=== PATIENT | male | born 1950 | race Caucasian/White ===

== ENCOUNTER 2016-07-19 09:37 | Emergency (ER) | payer OTHER, MEDICAID ==
[~2016-07-19] VITALS: Ht 182.9 cm; Wt 81.6 kg
[2016-07-19 10:16] LABS: Basophils # (auto) 0 uL; Basophils % (auto) 0.4 % (0.0-2.0); Eosinophils # (auto) 0.2 uL; Eosinophils % (auto) 2.4 % (0.0-7.0); Hematocrit 50.3 % (41.0-53.0); Hemoglobin 16.1 g/dL (13.5-17.5); Lymphocytes # (auto) 4.2 uL; Lymphocytes % (auto) 41.7 % (10.0-50.0); Mean Corpuscular Hemoglobin 29.8 pg (28.0-32.0); Mean Corpuscular Hgb Conc. 32.1 g/dL (32.0-36.0); Mean Corpuscular Volume 92.9 fL (80.0-100.0); Monocytes # (auto) 0.7 uL; Monocytes % (auto) 7.4 % (0.0-12.0); Neutrophils # (auto) 4.9 uL; Neutrophils % (auto) 48.1 % (37.0-80.0); Platelet Count (auto) 295 10^3/uL (140-450); Red Cell Distribution Width 13.5 % (11.6-16.0); White Blood Cell 10.2 10^3/uL (4.4-10.8)
[2016-07-19 10:35] LABS: Albumin 3.6 g/dL (3.4-5.0); BUN/Creatinine Ratio 29.5; Calcium 8.8 mg/dL (8.5-10.1); Magnesium 2.2 mg/dL (1.6-2.6)
[2016-07-19 10:38] LABS: Bilirubin, Total 0.9 mg/dL (0.2-1.0); Total Protein 7.4 g/dL (6.4-8.2)
[2016-07-19] MEDS ORDERED: PANTOPRAZOLE SODIUM 40 MG/10 ML VIAL IV ONE (11:30)
[2016-07-19 12:15] VITALS: BP 132/86
== END 2016-07-19 12:47 | disposition home or self-care (01) ==
LOC: ER 09:47
DX: K64.9 Unspecified hemorrhoids (principal); F17.210 Nicotine dependence, cigarettes, uncomplicated; J44.9 Chronic obstructive pulmonary disease, unspecified; F12.10 Cannabis abuse, uncomplicated; Z88.5 Allergy status to narcotic agent
CPT/HCPCS: 36415; 74176; 80053; 83735; 84484; 85025; 93005; 94761; 96374; 99285; C9113

== ENCOUNTER 2017-06-26 11:55 | Observation (INO) | payer OTHER, MEDICAID ==
[~2017-06-26] VITALS: Ht 193 cm; Wt 83.9 kg
[2017-06-26 15:41] VITALS: BP 149/87
[2017-06-26] MEDS ORDERED: cefTRIAXone SOD 1,000 MG VL ONE (16:10)
[2017-06-26] MEDS ORDERED: cefTRIAXone W LIDOCAINE 1 GM IM IM ONE (16:30)
== END 2017-06-26 16:37 | disposition home or self-care (01) | DRG 202 ==
LOC: ER 11:55 → OVERFLOW 13:21 → ER 16:37
PROVIDERS: ADMIT Family Medicine; ATTEND Family Medicine
DX: J20.8 Acute bronchitis due to other specified organisms (principal); J44.1 Chronic obstructive pulmonary disease with (acute) exacerbation; I10 Essential (primary) hypertension; Z87.891 Personal history of nicotine dependence; Z82.49 Family history of ischemic heart disease and other diseases of the circulatory system
CPT/HCPCS: 71046; 93005; 96372; 99285; G0378; J0696

== ENCOUNTER 2022-05-11 14:21 | Inpatient (IN) | payer OTHER, MEDICAID ==
[~2022-05-11] VITALS: Ht 185.4 cm; Wt 92.5 kg
[2022-05-11] MEDS ORDERED: MORPHINE SULFATE 4 MG/ML SYR/VIAL IV ONE (18:45)
[2022-05-11] MEDS ORDERED: SODIUM CHLORIDE 0.9% 1,000 ML IV ONE (19:00)
[2022-05-11 19:35] LABS: Hemoglobin 11.2 g/dL (13.5-17.5); Mean Corpuscular Hemoglobin 30.7 pg (28.0-32.0); Mean Corpuscular Hgb Conc. 34.8 g/dL (32.0-36.0); Mean Corpuscular Volume 88.1 fL (80.0-100.0); Red Blood Cells 3.64 10^6/uL (4.5-5.90); Red Cell Distribution Width 14.2 % (11.8-14.3); White Blood Cell 7.2 10^3/uL (4.4-10.8)
[2022-05-11 19:38] LABS: Basophils % (manual) 0 (0.0-2.0); Blast Cells 0; Myelocytes % 0; Promyelocytes % 0; Reactive Lymphocytes 0
[2022-05-11 19:48] LABS: Albumin 3.6 g/dL (3.4-5.0); Calcium 9.1 mg/dL (8.5-10.1); Potassium 3.8 mmol/L (3.5-5.1)
[2022-05-11 19:56] LABS: Band Neutrophils % (manual) 13; Eosinophils % (manual) 3 (0-7); Lymphocytes % (manual) 49 (10.0-50.0); Metamyelocytes % 3; Monocytes % (manual) 5 (0-12)
[2022-05-11] MEDS ORDERED: KETOROLAC TROMETH 30 MG/ML 1ML VIAL IV PRN (20:00)
[2022-05-11] MEDS ORDERED: SODIUM CHLORIDE 0.9% 1,000 ML IV SCH (20:00)
[2022-05-11] MEDS ORDERED: MORPHINE SULFATE INJ 2 MG/ml SYRG IV PRN (20:00)
[2022-05-11] MEDS ORDERED: KETOROLAC TROMETH 30 MG/ML 1ML VIAL IV ONE (20:00)
[2022-05-11] MEDS ORDERED: HYDROcodone-ACET 5/325MG TAB PO PRN (20:00)
[2022-05-11] MEDS ORDERED: ACETAMINOPHEN 325 MG TAB PO PRN (20:00)
[2022-05-11 20:03] LABS: BUN/Creatinine Ratio 15.1; Bilirubin, Total 1.9 mg/dL (0.2-1.0); Total Protein 7.3 g/dL (6.4-8.2)
[2022-05-11 20:26] LABS: % Iron Saturation 21.2 % (20-55)
[2022-05-11] MEDS ORDERED: ALBUTEROL SULF 2.5 MG/0.5ML(0.5%) NEB SOLN NEB PRN (20:30)
[2022-05-11] MEDS ORDERED: methylPREDNISolone SOD SUCC 125 MG/2 ML VL IV ONE (20:30)
[2022-05-11] MEDS ORDERED: hydrALAZINE HCL 20 MG/ML VL IV PRN (20:30)
[2022-05-11 20:35] VITALS: BP 180/98
[2022-05-11 20:52] LABS: INR 1.18 (0.9-1.15)
[2022-05-11] MEDS ORDERED: ASCORBIC ACID 500 MG TAB PO SCH (22:00)
[2022-05-12 03:43] LABS: Basophils # (auto) 0 10 ^3/uL (0-0.2); Basophils % (auto) 0.7 % (0.0-2.0); Eosinophils # (auto) 0.1 10 ^3/uL (0-0.8); Eosinophils % (auto) 2.3 % (0.0-7.0); Hematocrit 27.6 % (41.0-53.0); Hemoglobin 9.6 g/dL (13.5-17.5); Lymphocytes # (auto) 2.9 10 ^3/uL (0.4-5.4); Lymphocytes % (auto) 43.9 % (10.0-50.0); Mean Corpuscular Hemoglobin 30.7 pg (28.0-32.0); Mean Corpuscular Hgb Conc. 34.8 g/dL (32.0-36.0); Mean Corpuscular Volume 88.2 fL (80.0-100.0); Monocytes # (auto) 0.3 10 ^3/uL (0-1.3); Monocytes % (auto) 4.5 % (0.0-12.0); Neutrophils # (auto) 3.2 10 ^3/uL (1.6-8.6); Neutrophils % (auto) 48.6 % (37.0-80.0); Nucleated Red Blood Cells % 0.2 %; Red Blood Cells 3.12 10^6/uL (4.5-5.90); Red Cell Distribution Width 14.3 % (11.8-14.3); White Blood Cell 6.5 10^3/uL (4.4-10.8)
[2022-05-12] MEDS: IPRATROPIUM BROM 0.5 MG/2.5ML INH SOL NEB SCH ×2 (07:08→19:05)
[2022-05-12] MEDS: ALBUTEROL SULF 2.5 MG/0.5ML(0.5%) NEB SOLN NEB SCH ×2 (07:08→19:05)
[2022-05-12] MEDS: MULTIPLE VITAMIN TAB PO SCH (10:00)
[2022-05-12] MEDS ORDERED: methylPREDNISolone SOD SUCC 125 MG/2 ML VL IV SCH ×2 (10:00→22:00)
[2022-05-12] MEDS ORDERED: ZINC SULFATE 220mg CAP or TAB PO SCH (10:00)
[2022-05-12] MEDS: ENOXAPARIN SOD 40 MG/0.4 ML SYRINGE SC SCH (10:00)
[2022-05-12] MEDS ORDERED: HYDROcodone-ACET 5/325MG TAB PO PRN (20:30)
[2022-05-12] MEDS ORDERED: MORPHINE SULFATE INJ 2 MG/ml SYRG IV PRN (20:30)
[2022-05-12 21:56] LABS: Urine Bacteria FEW /hpf (None Seen); Urine Blood 1+ /uL (Negative); Urine Specific Gravity 1.015 (1.001-1.035); Urine WBC <1 /hpf (0 - 3)
[2022-05-12 22:00] VITALS: BP 138/75
[2022-05-12 22:24] VITALS: BP 138/75
[2022-05-12] MEDS ORDERED: HYDR-4902 PO (22:58)
[2022-05-13 05:00] VITALS: BP 134/69
[2022-05-13 05:16] LABS: Basophils # (auto) 0 10 ^3/uL (0-0.2); Basophils % (auto) 0.8 % (0.0-2.0); Eosinophils # (auto) 0.1 10 ^3/uL (0-0.8); Eosinophils % (auto) 2.2 % (0.0-7.0); Hematocrit 26.6 % (41.0-53.0); Hemoglobin 9.2 g/dL (13.5-17.5); Lymphocytes # (auto) 2.9 10 ^3/uL (0.4-5.4); Lymphocytes % (auto) 48.9 % (10.0-50.0); Mean Corpuscular Hemoglobin 30.7 pg (28.0-32.0); Mean Corpuscular Hgb Conc. 34.6 g/dL (32.0-36.0); Mean Corpuscular Volume 88.8 fL (80.0-100.0); Monocytes # (auto) 0.4 10 ^3/uL (0-1.3); Monocytes % (auto) 6.2 % (0.0-12.0); Neutrophils # (auto) 2.5 10 ^3/uL (1.6-8.6); Neutrophils % (auto) 41.9 % (37.0-80.0); Nucleated Red Blood Cells % 0.2 %; Red Blood Cells 2.99 10^6/uL (4.5-5.90); Red Cell Distribution Width 14.6 % (11.8-14.3); White Blood Cell 5.9 10^3/uL (4.4-10.8)
[2022-05-13 05:36] LABS: BUN/Creatinine Ratio 14.3; Calcium 8.8 mg/dL (8.5-10.1); Potassium 3.7 mmol/L (3.5-5.1)
[2022-05-13 08:58] VITALS: BP 135/78
[2022-05-13] MEDS: MULTIPLE VITAMIN TAB PO SCH (09:34)
[2022-05-13] MEDS: ENOXAPARIN SOD 40 MG/0.4 ML SYRINGE SC SCH (09:34)
[2022-05-13] MEDS ORDERED: HYDROcodone-ACET 10/325MG TAB PO PRN ×2 (09:45→12:30)
[2022-05-13] MEDS: methylPREDNISolone SOD SUCC 40 MG/ML VL IV SCH ×2 (10:46→21:51)
[2022-05-13 12:51] VITALS: BP 133/65
[2022-05-13] MEDS: ALBUTEROL SULF 2.5 MG/0.5ML(0.5%) NEB SOLN NEB SCH ×4 (14:38→18:05)
[2022-05-13] MEDS: IPRATROPIUM BROM 0.5 MG/2.5ML INH SOL NEB SCH ×4 (14:38→18:05)
[2022-05-13] MEDS: HYDROcodone-ACET 10/325MG TAB PO PRN ×2 (15:27→20:29)
[2022-05-13] MEDS ORDERED: IOHEXOL 300 MG/ML 100ML BOTTLE IJ ONE (17:25)
[2022-05-13 22:00] VITALS: BP 126/79
[2022-05-14] MEDS: ALBUTEROL SULF 2.5 MG/0.5ML(0.5%) NEB SOLN NEB SCH ×4 (00:01→18:23)
[2022-05-14] MEDS: IPRATROPIUM BROM 0.5 MG/2.5ML INH SOL NEB SCH ×4 (00:01→18:23)
[2022-05-14] MEDS: HYDROcodone-ACET 10/325MG TAB PO PRN (02:55)
[2022-05-14 05:00] VITALS: BP 123/71
[2022-05-14] MEDS ORDERED: IOHEXOL 300 MG/ML 100ML BOTTLE IJ ONE (08:20)
[2022-05-14 09:00] VITALS: BP 98/53
[2022-05-14] MEDS ORDERED: ONDANSETRON HCL 4 MG/2 ML VIAL IV PRN (09:45)
[2022-05-14] MEDS ORDERED: HYDROmorphone HCL 2 MG/ML VL/or syr IV ONE (09:45)
[2022-05-14] MEDS ORDERED: OXYCODONE W/ ACETAMINOPHEN 5/325MG TABLET PO PRN (09:45)
[2022-05-14] MEDS: methylPREDNISolone SOD SUCC 40 MG/ML VL IV SCH ×2 (09:56→21:35)
[2022-05-14] MEDS: ENOXAPARIN SOD 40 MG/0.4 ML SYRINGE SC SCH (09:56)
[2022-05-14] MEDS: MULTIPLE VITAMIN TAB PO SCH (09:56)
[2022-05-14] MEDS: MORPHINE SULF 15mg ER tab PO SCH ×2 (10:42→21:35)
[2022-05-14 13:00] VITALS: BP 117/71
[2022-05-14] MEDS: CIPROFLOXACIN HCL 500 MG TAB PO SCH ×2 (16:57→21:36)
[2022-05-14 17:00] VITALS: BP_SYST 107; BP_SYST 120; BP_DIAS 59; BP_DIAS 68
[2022-05-14 22:00] VITALS: BP 106/59
[2022-05-15] MEDS: IPRATROPIUM BROM 0.5 MG/2.5ML INH SOL NEB SCH ×4 (00:16→18:43)
[2022-05-15] MEDS: ALBUTEROL SULF 2.5 MG/0.5ML(0.5%) NEB SOLN NEB SCH ×4 (00:16→18:43)
[2022-05-15 05:00] VITALS: BP 120/60
[2022-05-15 08:34] VITALS: BP 96/46
[2022-05-15] MEDS: methylPREDNISolone SOD SUCC 40 MG/ML VL IV SCH ×2 (09:38→21:15)
[2022-05-15] MEDS: CIPROFLOXACIN HCL 500 MG TAB PO SCH ×2 (09:38→21:16)
[2022-05-15] MEDS: MULTIPLE VITAMIN TAB PO SCH (09:38)
[2022-05-15] MEDS: ENOXAPARIN SOD 40 MG/0.4 ML SYRINGE SC SCH (09:39)
[2022-05-15] MEDS: MORPHINE SULF 15mg ER tab PO SCH ×3 (09:39→21:16)
[2022-05-15] MEDS: SODIUM CHLORIDE 0.9% 1,000 ML IV SCH ×2 (12:46→21:12)
[2022-05-15 13:00] VITALS: BP 125/72
[2022-05-15 17:00] VITALS: BP 127/62
[2022-05-15] MEDS: DOCUSATE SOD 100 MG CAP PO SCH (21:15)
[2022-05-15 22:00] VITALS: BP 113/61
[2022-05-16 05:00] VITALS: BP 117/64
[2022-05-16] MEDS: MORPHINE SULF 15mg ER tab PO SCH ×3 (05:26→22:09)
[2022-05-16 07:23] LABS: Potassium 4.8 mmol/L (3.5-5.1)
[2022-05-16] MEDS: IPRATROPIUM BROM 0.5 MG/2.5ML INH SOL NEB SCH ×4 (07:23→19:12)
[2022-05-16] MEDS: ALBUTEROL SULF 2.5 MG/0.5ML(0.5%) NEB SOLN NEB SCH ×4 (07:23→19:12)
[2022-05-16 08:00] VITALS: BP 125/64
[2022-05-16 08:14] LABS: BUN/Creatinine Ratio 28.7; Bilirubin, Total 1.1 mg/dL (0.2-1.0); Calcium 8.2 mg/dL (8.5-10.1); Total Protein 6.3 g/dL (6.4-8.2)
[2022-05-16] MEDS: ENOXAPARIN SOD 40 MG/0.4 ML SYRINGE SC SCH (10:00)
[2022-05-16] MEDS: CIPROFLOXACIN HCL 500 MG TAB PO SCH ×2 (10:13→22:09)
[2022-05-16] MEDS: methylPREDNISolone SOD SUCC 40 MG/ML VL IV SCH ×2 (10:13→22:08)
[2022-05-16] MEDS: DOCUSATE SOD 100 MG CAP PO SCH ×2 (10:14→22:09)
[2022-05-16] MEDS: MULTIPLE VITAMIN TAB PO SCH (10:14)
[2022-05-16 12:00] VITALS: BP 108/63
[2022-05-16] MEDS ORDERED: POLYETHYLENE GLYCOL 17 GM PWDR PO ONE (12:45)
[2022-05-16] MEDS ORDERED: MAGNESIUM CITRATE SOLUTION 300 ML BTL PO ONE (15:00)
[2022-05-16 16:00] VITALS: BP 118/64
[2022-05-16] MEDS ORDERED: LACTULOSE 20Gm/30ML SOLN PO PRN (16:15)
[2022-05-16] MEDS ORDERED: ALBUTEROL MEDNEB 2.5 mg/3ml NEB ONE ×2 (18:09→23:56)
[2022-05-16 20:00] VITALS: BP 115/64
[2022-05-16] MEDS: SODIUM CHLORIDE 0.9% 1,000 ML IV SCH (20:50)
[2022-05-16 22:00] VITALS: BP 115/64
[2022-05-17] MEDS: IPRATROPIUM BROM 0.5 MG/2.5ML INH SOL NEB SCH ×4 (00:12→19:03)
[2022-05-17] MEDS: ALBUTEROL SULF 2.5 MG/0.5ML(0.5%) NEB SOLN NEB SCH ×4 (00:13→19:02)
[2022-05-17 05:00] VITALS: BP 120/65
[2022-05-17 05:31] LABS: Hemoglobin 8.9 g/dL (13.5-17.5); Mean Corpuscular Hemoglobin 30.7 pg (28.0-32.0); Mean Corpuscular Hgb Conc. 34.2 g/dL (32.0-36.0); Mean Corpuscular Volume 89.5 fL (80.0-100.0); Red Blood Cells 2.91 10^6/uL (4.5-5.90); Red Cell Distribution Width 14.8 % (11.8-14.3); White Blood Cell 8.8 10^3/uL (4.4-10.8)
[2022-05-17 05:42] LABS: INR 1.12 (0.9-1.15); Partial Thromboplastin Time 23.4 sec (24.6-33.4)
[2022-05-17 05:45] LABS: Potassium 4.8 mmol/L (3.5-5.1)
[2022-05-17 05:49] LABS: Basophils % (manual) 0 (0.0-2.0); Blast Cells 0; Eosinophils % (manual) 0 (0-7); Promyelocytes % 0; Reactive Lymphocytes 0
[2022-05-17 05:50] LABS: BUN/Creatinine Ratio 31.3; Calcium 7.9 mg/dL (8.5-10.1)
[2022-05-17] MEDS: MORPHINE SULF 15mg ER tab PO SCH ×3 (05:55→21:43)
[2022-05-17] MEDS ORDERED: ALBUTEROL MEDNEB 2.5 mg/3ml NEB ONE ×3 (06:04→18:01)
[2022-05-17 07:20] LABS: Band Neutrophils % (manual) 11; Lymphocytes % (manual) 47 (10.0-50.0); Metamyelocytes % 2; Monocytes % (manual) 2 (0-12); Myelocytes % 1
[2022-05-17 08:00] VITALS: BP 107/59
[2022-05-17] MEDS ORDERED: FLEET ENEMA(ADULT) 135 ML PR ONE (08:00)
[2022-05-17] MEDS: methylPREDNISolone SOD SUCC 40 MG/ML VL IV SCH (09:40)
[2022-05-17] MEDS: MULTIPLE VITAMIN TAB PO SCH (09:41)
[2022-05-17] MEDS: DOCUSATE SOD 100 MG CAP PO SCH ×2 (09:41→21:43)
[2022-05-17] MEDS: CIPROFLOXACIN HCL 500 MG TAB PO SCH ×2 (09:41→21:43)
[2022-05-17] MEDS: ENOXAPARIN SOD 40 MG/0.4 ML SYRINGE SC SCH (10:00)
[2022-05-17] MEDS ORDERED: POLYETHYLENE GLYCOL 17 GM PWDR PO PRN (10:00)
[2022-05-17] MEDS ORDERED: LACTULOSE 20Gm/30ML SOLN PO PRN (11:30)
[2022-05-17] MEDS: SODIUM CHLORIDE 0.9% 1,000 ML IV SCH ×2 (11:30→18:48)
[2022-05-17] MEDS ORDERED: MIDAZOLAM HCL 2MG/2ML 2ml VIAL (1mg/ml) ONE (11:58)
[2022-05-17] MEDS ORDERED: fentaNYL CITRATE 100 MCG/2 ML VL ONE (11:58)
[2022-05-17] MEDS ORDERED: SODIUM CHLORIDE LOCK 10 ML ONE (11:59)
[2022-05-17] MEDS ORDERED: ONDANSETRON HCL 4 MG/2 ML VIAL ONE (11:59)
[2022-05-17] MEDS ORDERED: DexAMETHasone SOD PHOS 10MG/1ML VIAL INJ ONE (11:59)
[2022-05-17] MEDS ORDERED: PROPOFOL 10 MG/ML 20 ML IV ONE (11:59)
[2022-05-17] MEDS ORDERED: CIPROFLOXACIN 400MG/200ML 200 ML IV ONE (12:17)
[2022-05-17] MEDS ORDERED: MORPHINE SULFATE 4 MG/ML SYR/VIAL IV PRN (12:30)
[2022-05-17] MEDS ORDERED: METOCLOPRAMIDE HCL 5MG/ml INJ 2ml VIAL IV PRN (12:30)
[2022-05-17] MEDS ORDERED: HYDROmorphone HCL 2 MG/ML VL/or syr IV PRN ×2 (12:30)
[2022-05-17] MEDS: METOCLOPRAMIDE HCL 5MG/ml INJ 2ml VIAL IV SCH ×2 (14:31→21:42)
[2022-05-17 16:00] VITALS: BP 123/62
[2022-05-17 20:00] VITALS: BP 133/73
[2022-05-17 22:00] VITALS: BP 133/73
[2022-05-18] MEDS ORDERED: ALBUTEROL MEDNEB 2.5 mg/3ml NEB ONE ×2 (00:09→05:39)
[2022-05-18] MEDS: ALBUTEROL SULF 2.5 MG/0.5ML(0.5%) NEB SOLN NEB SCH ×3 (00:17→12:16)
[2022-05-18] MEDS: IPRATROPIUM BROM 0.5 MG/2.5ML INH SOL NEB SCH ×3 (00:17→12:16)
[2022-05-18 05:00] VITALS: BP 120/69
[2022-05-18] MEDS: METOCLOPRAMIDE HCL 5MG/ml INJ 2ml VIAL IV SCH (06:01)
[2022-05-18] MEDS: MORPHINE SULF 15mg ER tab PO SCH ×2 (06:01→15:08)
[2022-05-18 09:00] VITALS: BP 115/66
[2022-05-18] MEDS: ENOXAPARIN SOD 40 MG/0.4 ML SYRINGE SC SCH (09:48)
[2022-05-18] MEDS: DOCUSATE SOD 100 MG CAP PO SCH (09:49)
[2022-05-18] MEDS: CIPROFLOXACIN HCL 500 MG TAB PO SCH (09:49)
[2022-05-18] MEDS: MULTIPLE VITAMIN TAB PO SCH (09:49)
[2022-05-18] MEDS ORDERED: methylPREDNISolone SOD SUCC 40 MG/ML VL IV SCH (10:00)
[2022-05-18] MEDS ORDERED: BISACODYL 10 MG RECT SUPP PR ONE (10:30)
[2022-05-18] MEDS ORDERED: FLEET ENEMA(ADULT) 135 ML PR ONE (10:30)
[2022-05-18] MEDS ORDERED: MORP1TAB12 PO (10:51)
[2022-05-18] MEDS ORDERED: BICA50TA41 PO (10:51)
[2022-05-18] MEDS ORDERED: DOCU-94 PO (10:51)
[2022-05-18] MEDS ORDERED: TAM04C PO (10:51)
[2022-05-18] MEDS ORDERED: BUDE1AER4 IN (10:51)
[2022-05-18 11:01] LABS: Hematocrit 25.1 % (41.0-53.0); Hemoglobin 8.7 g/dL (13.5-17.5); Mean Corpuscular Hemoglobin 30.9 pg (28.0-32.0); Mean Corpuscular Hgb Conc. 34.5 g/dL (32.0-36.0); Mean Corpuscular Volume 89.4 fL (80.0-100.0); Red Blood Cells 2.81 10^6/uL (4.5-5.90); Red Cell Distribution Width 14.7 % (11.8-14.3); White Blood Cell 8.3 10^3/uL (4.4-10.8)
[2022-05-18 11:09] LABS: Basophils % (manual) 0 (0.0-2.0); Blast Cells 0; Eosinophils % (manual) 0 (0-7); Promyelocytes % 0; Reactive Lymphocytes 0
[2022-05-18 11:15] LABS: BUN/Creatinine Ratio 24.6; Calcium 7.7 mg/dL (8.5-10.1); Potassium 3.9 mmol/L (3.5-5.1)
[2022-05-18 13:00] VITALS: BP 114/63
[2022-05-18] MEDS ORDERED: GADOTERATE MEG 10 MMOL/20ml INJ (0.5MMOL/ml) IV ONE (13:40)
[2022-05-18 14:54] LABS: Band Neutrophils % (manual) 9; Lymphocytes % (manual) 59 (10.0-50.0); Metamyelocytes % 2; Monocytes % (manual) 3 (0-12); Myelocytes % 1
[2022-05-18 17:00] VITALS: BP 120/69
[2022-05-18 17:44] VITALS: BP 120/69
[2022-05-18 18:12] VITALS: BP 120/69
== END 2022-05-18 19:04 | disposition home or self-care (01) | DRG 722 ==
LOC: ER 14:21 → OVERFLOW 20:06 → EAST 05-12 21:02
PROVIDERS: ADMIT Nurse Practitioner Family; ATTEND Nurse Practitioner Acute Care
PROC: 0VB08ZX Excision of Prostate, Via Natural or Artificial Opening Endoscopic, Diagnostic (ICD-10-PCS; principal; 2022-05-17 12:35)
DX: C61 Malignant neoplasm of prostate (principal); J96.21 Acute and chronic respiratory failure with hypoxia; C79.51 Secondary malignant neoplasm of bone; N17.9 Acute kidney failure, unspecified; N13.30 Unspecified hydronephrosis; G89.3 Neoplasm related pain (acute) (chronic); D64.9 Anemia, unspecified; I10 Essential (primary) hypertension; J43.9 Emphysema, unspecified; Z20.822 Contact with and (suspected) exposure to COVID-19; K59.03 Drug induced constipation; T40.605A Adverse effect of unspecified narcotics, initial encounter; N40.0 Benign prostatic hyperplasia without lower urinary tract symptoms; Z90.49 Acquired absence of other specified parts of digestive tract; Z79.51 Long term (current) use of inhaled steroids; Z88.5 Allergy status to narcotic agent; Z88.8 Allergy status to other drugs, medicaments and biological substances; Z87.891 Personal history of nicotine dependence; Z85.46 Personal history of malignant neoplasm of prostate
CPT/HCPCS: 36415; 71045; 71250; 74176; 74177; 78306; 78582; 80048; 80053; 81001; 82784; 83516; 83540; 83550; 84153; 85007; 85025; 85027; 85379; 85610; 85652; 85730; 86255; 93970; 94640; G0378; J1100; J1885; J2250; J2405; J2704

== ENCOUNTER 2022-06-02 12:45 | Inpatient (IN) | payer OTHER, MEDICAID ==
[~2022-06-02] VITALS: Ht 185.4 cm; Wt 90.0 kg
[~2022-06-02 12:45] MED LIST: BICA50TA41 PO; BUDE1AER4 IN; DOCU-94 PO; HYDR-4902 PO; MORP1TAB12 PO; TAM04C PO
[2022-06-02] MEDS ORDERED: ONDANSETRON HCL 4 MG/2 ML VIAL IV ONE (13:45)
[2022-06-02] MEDS ORDERED: MORPHINE SULFATE 4 MG/ML SYR/VIAL IV ONE (13:45)
[2022-06-02 14:02] LABS: Urine Bacteria FEW /hpf (None Seen); Urine Blood Negative /uL (Negative); Urine Mucus FEW (None Seen); Urine Specific Gravity 1.027 (1.001-1.035); Urine WBC 2 /hpf (0 - 3)
[2022-06-02 14:03] LABS: Basophils # (auto) 0.1 10 ^3/uL (0-0.2); Basophils % (auto) 1.1 % (0.0-2.0); Eosinophils # (auto) 0.2 10 ^3/uL (0-0.8); Eosinophils % (auto) 3.1 % (0.0-7.0); Hematocrit 25.6 % (41.0-53.0); Hemoglobin 8.8 g/dL (13.5-17.5); Lymphocytes # (auto) 1.9 10 ^3/uL (0.4-5.4); Lymphocytes % (auto) 37.1 % (10.0-50.0); Mean Corpuscular Hemoglobin 31.6 pg (28.0-32.0); Mean Corpuscular Hgb Conc. 34.2 g/dL (32.0-36.0); Mean Corpuscular Volume 92.3 fL (80.0-100.0); Monocytes # (auto) 0.3 10 ^3/uL (0-1.3); Monocytes % (auto) 5.9 % (0.0-12.0); Neutrophils # (auto) 2.7 10 ^3/uL (1.6-8.6); Neutrophils % (auto) 52.8 % (37.0-80.0); Nucleated Red Blood Cells % 0.2 %; Red Blood Cells 2.78 10^6/uL (4.5-5.90); Red Cell Distribution Width 16.8 % (11.8-14.3); White Blood Cell 5.1 10^3/uL (4.4-10.8)
[2022-06-02 14:20] LABS: Albumin 3.3 g/dL (3.4-5.0); Potassium 4.5 mmol/L (3.5-5.1)
[2022-06-02 14:23] LABS: BUN/Creatinine Ratio 23.7; Calcium 8.2 mg/dL (8.5-10.1)
[2022-06-02 14:34] LABS: INR 1.08 (0.9-1.15); Partial Thromboplastin Time 26.5 sec (24.6-33.4)
[2022-06-02 14:36] LABS: Bilirubin, Total 1.3 mg/dL (0.2-1.0); Total Protein 6.3 g/dL (6.4-8.2)
[2022-06-02] MEDS ORDERED: HYDROmorphone HCL 2 MG/ML VL/or syr IM ONE (16:00)
[2022-06-02] MEDS ORDERED: ONDANSETRON HCL 4 MG/2 ML VIAL IM ONE (16:00)
[2022-06-02] MEDS ORDERED: MAALOX PLUS or MAALOX 30 ML PO PRN (21:30)
[2022-06-02] MEDS ORDERED: HYDROmorphone HCL 2 MG/ML VL/or syr IV PRN (21:30)
[2022-06-02] MEDS ORDERED: ACETAMINOPHEN 325 MG TAB PO PRN (21:30)
[2022-06-02] MEDS ORDERED: DOCUSATE SOD 100 MG CAP PO PRN (21:30)
[2022-06-03] MEDS: ONDANSETRON HCL 4 MG/2 ML VIAL IV PRN ×2 (00:41→06:39)
[2022-06-03] MEDS: SODIUM CHLORIDE 0.9% 1,000 ML IV SCH ×2 (00:41→18:06)
[2022-06-03] MEDS: MORPHINE SULFATE INJ 2 MG/ml SYRG IV PRN ×3 (01:09→12:04)
[2022-06-03 06:15] LABS: Hematocrit 23.1 % (41.0-53.0); Mean Corpuscular Hemoglobin 31.4 pg (28.0-32.0); Red Blood Cells 2.55 10^6/uL (4.5-5.90)
[2022-06-03 06:17] LABS: Mean Corpuscular Hgb Conc. 34.5 g/dL (32.0-36.0); Red Cell Distribution Width 16.9 % (11.8-14.3); White Blood Cell 4.9 10^3/uL (4.4-10.8)
[2022-06-03 06:19] LABS: Basophils % (manual) 0 (0.0-2.0); Blast Cells 0; Promyelocytes % 0; Reactive Lymphocytes 0
[2022-06-03 06:33] LABS: Calcium 8.1 mg/dL (8.5-10.1); Potassium 4.2 mmol/L (3.5-5.1)
[2022-06-03 06:35] LABS: BUN/Creatinine Ratio 24.1
[2022-06-03 07:54] LABS: Band Neutrophils % (manual) 11; Eosinophils % (manual) 3 (0-7); Lymphocytes % (manual) 42 (10.0-50.0); Metamyelocytes % 1; Monocytes % (manual) 2 (0-12); Myelocytes % 3
[2022-06-03] MEDS ORDERED: MORPHINE SULF 15mg ER tab PO ONE (14:30)
[2022-06-03] MEDS ORDERED: MORPHINE SULFATE INJ 2 MG/ml SYRG IV PRN (14:30)
[2022-06-03 18:00] VITALS: BP 122/72
[2022-06-03 18:04] VITALS: BP 122/72
[2022-06-03] MEDS: ALBUTEROL MEDNEB 2.5 mg/3ml NEB NEB PRN (20:28)
[2022-06-03] MEDS: DOCUSATE SOD 100 MG CAP PO SCH (21:53)
[2022-06-03 22:00] VITALS: BP 112/61
[2022-06-03] MEDS ORDERED: MORPHINE SULF 15mg ER tab PO SCH (22:00)
[2022-06-03] MEDS: LORazepam 0.5 MG TAB PO PRN (22:16)
[2022-06-04 01:46] VITALS: BP 112/61
[2022-06-04] MEDS: SODIUM CHLORIDE 0.9% 1,000 ML IV SCH ×2 (04:20→04:22)
[2022-06-04 05:00] VITALS: BP 120/61
[2022-06-04 06:29] LABS: Hematocrit 23.1 % (41.0-53.0); Red Blood Cells 2.53 10^6/uL (4.5-5.90)
[2022-06-04 06:31] LABS: Mean Corpuscular Hemoglobin 31.5 pg (28.0-32.0); Mean Corpuscular Hgb Conc. 34.4 g/dL (32.0-36.0); Mean Corpuscular Volume 91.6 fL (80.0-100.0); Red Cell Distribution Width 17.5 % (11.8-14.3); White Blood Cell 4.8 10^3/uL (4.4-10.8)
[2022-06-04 06:39] LABS: Basophils % (manual) 0 (0.0-2.0); Blast Cells 0; Myelocytes % 0; Promyelocytes % 0; Reactive Lymphocytes 0
[2022-06-04 06:43] LABS: % Iron Saturation 35.7 % (20-55)
[2022-06-04 08:00] VITALS: BP 135/72
[2022-06-04 09:14] LABS: Band Neutrophils % (manual) 2; Eosinophils % (manual) 2 (0-7); Lymphocytes % (manual) 61 (10.0-50.0); Metamyelocytes % 1; Monocytes % (manual) 4 (0-12)
[2022-06-04] MEDS: DOCUSATE SOD 100 MG CAP PO SCH ×2 (09:44→21:00)
[2022-06-04] MEDS ORDERED: MORPHINE SULF 30 mg ER tab PO SCH (10:00)
[2022-06-04 12:00] VITALS: BP 130/72
[2022-06-04 16:00] VITALS: BP 125/62
[2022-06-04] MEDS: MORPHINE SULF 15mg ER tab PO SCH (21:01)
[2022-06-04 22:00] VITALS: BP 103/57
[2022-06-05 04:57] VITALS: BP_SYST 113; BP_SYST 115; BP_DIAS 49; BP_DIAS 70
[2022-06-05 08:00] VITALS: BP 118/68
[2022-06-05] MEDS: DOCUSATE SOD 100 MG CAP PO SCH ×2 (09:37→21:36)
[2022-06-05] MEDS: MORPHINE SULF 15mg ER tab PO SCH ×2 (09:37→21:37)
[2022-06-05] MEDS ORDERED: PANTOPRAZOLE 40 MG TAB PO ONE (11:15)
[2022-06-05 12:00] VITALS: BP 138/69
[2022-06-05] MEDS: ONDANSETRON HCL 4 MG/2 ML VIAL IV PRN (13:03)
[2022-06-05] MEDS: ALBUTEROL MEDNEB 2.5 mg/3ml NEB NEB PRN ×2 (13:27→21:52)
[2022-06-05] MEDS: HYDROcodone-ACET 5/325MG TAB PO PRN (15:22)
[2022-06-05 16:00] VITALS: BP 104/66
[2022-06-05] MEDS ORDERED: TAMSULOSIN HYDROCHLORIDE 0.4 MG CAP PO SCH (18:00)
[2022-06-05 19:45] VITALS: BP 97/50
[2022-06-05 22:29] VITALS: BP 88/47
[2022-06-06 05:48] VITALS: BP 113/50
[2022-06-06 09:21] VITALS: BP 100/51
[2022-06-06] MEDS ORDERED: PANTOPRAZOLE 40 MG TAB PO SCH (10:00)
[2022-06-06] MEDS: DOCUSATE SOD 100 MG CAP PO SCH (10:29)
[2022-06-06] MEDS: MORPHINE SULF 15mg ER tab PO SCH (10:30)
[2022-06-06] MEDS: LORazepam 0.5 MG TAB PO PRN (11:38)
[2022-06-06] MEDS: HYDROcodone-ACET 5/325MG TAB PO PRN (11:39)
[2022-06-06 12:57] VITALS: BP 110/60
== END 2022-06-06 14:15 | disposition home or self-care (01) | DRG 948 ==
LOC: ER 12:45 → OVERFLOW 21:29 → WEST WING 06-03 17:52
PROVIDERS: ADMIT Hospitalist; ATTEND Internal Medicine
DX: G89.3 Neoplasm related pain (acute) (chronic) (principal); C79.51 Secondary malignant neoplasm of bone; N13.30 Unspecified hydronephrosis; C61 Malignant neoplasm of prostate; D64.9 Anemia, unspecified; I10 Essential (primary) hypertension; J43.9 Emphysema, unspecified; N40.0 Benign prostatic hyperplasia without lower urinary tract symptoms; R73.03 Prediabetes; Z20.822 Contact with and (suspected) exposure to COVID-19; M54.50 Low back pain, unspecified; R63.4 Abnormal weight loss; Z85.46 Personal history of malignant neoplasm of prostate; Z87.891 Personal history of nicotine dependence; Z68.26 Body mass index [BMI] 26.0-26.9, adult; Z90.49 Acquired absence of other specified parts of digestive tract; Z51.5 Encounter for palliative care
CPT/HCPCS: 36415; 80048; 80053; 81001; 82140; 82150; 82270; 83540; 83550; 83690; 85007; 85025; 85027; 85610; 85730; 86850; 86900; 86901; 87081; 87426; 93005; 94640; 96361; 96374; 96375; 96376; G0378; J2405